=== PATIENT | male | born 1985 | race Caucasian/White ===

== ENCOUNTER 2018-08-13 10:16 | Emergency (ER) | payer SELFPAY ==
[~2018-08-13] VITALS: Ht 177.8 cm; Wt 100.0 kg
[~2018-08-13 10:16] MED LIST: LEVE250T55 PO
[2018-08-13 12:06] VITALS: BP 139/83
== END 2018-08-13 12:29 | disposition home or self-care (01) ==
LOC: EMS 10:16
DX: S09.90XA Unspecified injury of head, initial encounter (principal); V43.52XA Car driver injured in collision with other type car in traffic accident, initial encounter; Y93.89 Activity, other specified; Y92.89 Other specified places as the place of occurrence of the external cause; Y99.8 Other external cause status